=== PATIENT | female | born 1970 | race Caucasian/White ===

== ENCOUNTER 2020-08-07 08:56 | Emergency (ER) | payer BC, SELFPAY ==
[~2020-08-07] VITALS: Ht 175.3 cm; Wt 75.7 kg
[2020-08-07 09:05] VITALS: BP 118/82
--- NOTE | 2020-08-07 09:25 | NUR ---
PT AMBULATED TO ROOM FROM TRIAGE. PT CO REDNESS/SCABBING/SWELLING TO LEFT NOSTRIL X4 DAYS. PT ALSO STATED THAT SHE WAS DIAGNOSED WITH BACTERIAL VAGINOSIS AND TRICHOMONIASIS IN JUNE ABND COMPLETED HER COURSE OF ABX, BUT IS STILL EXPERIENCING SOME MILD DISCHARGE AND ODOR AND WANTS TO BE RECHECKED FOR STD.
--- NOTE | 2020-08-07 10:28 | NUR ---
[place] COM[place]. CALL LIGHT WITHIN REACH.
[2020-08-07 11:10] LABS: CLUE CELLS NONE SEEN (NONE SEEN); WET PREP WBCS NONE SEEN (FEW)
--- NOTE | 2020-08-07 11:40 | NUR ---
DISCHARGE INSTRUCTIONS REVIEWED WITH PT. ALL QUESTIONS ANSWERED AT THIS TIME.
== END 2020-08-07 11:42 | disposition home or self-care (01) ==
LOC: ED 10:05
DX: L01.01 Non-bullous impetigo (principal); N76.0 Acute vaginitis
CPT/HCPCS: 87210; 87491; 87591; 87808; 99284